=== PATIENT | male | born 1980 | race Caucasian/White ===

== ENCOUNTER 2016-12-20 09:37 | Emergency (ER) | payer OTHER ==
[2016-12-20 09:50] VITALS: BP 129/86
[2016-12-20] MEDS ORDERED: Ondansetron 4 MG/2 ML SDV IVPUSH ONE (10:09)
--- NOTE | 2016-12-20 10:13 | EDM.PDOC ---
ED HPI GENERAL MEDICAL PROBLEM - General Chief Complaint: Headache Stated Complaint: HEADACHE AND VOMITING Time Seen by Provider: 12/20/16 09:51 Source of Information: Reports: Patient, RN Notes Reviewed - History of Present Illness INITIAL COMMENTS - FREE TEXT/NARRATIVE: 36-year-old male comes in with headache, nausea vomiting. He has been having headache for about the last 2 weeks intermittent intensity but never really going completely away. The last few nights that has been awakening him from sleep. He had onset of fairly severe repetitive vomiting last evening lasting through much of the night. He and his do have a young child that was ill with similar nausea vomiting symptoms about 3 days ago. He has not been having diarrhea. Nausea, vomiting is better now this morning. Continues to have moderate generalized headache. Major throbbing with that, mild light sensitivity. He has no history of migraines or frequent headaches, this has all been fairly atypical for him. He feels at times he may be "a bit off balance". No definite focal weakness or clumsiness. No visual difficulty. Headache Pain Score (Numeric/FACES): 7 - Related Data Allergies Allergy/AdvReac Type Severity Reaction Status Date / Time No Known Allergies Allergy Verified 12/20/16 10:25 Home Meds: Home Meds traMADol [Ultram] 50 mg PO Q8H PRN #20 tablet 12/20/16 [Rx] Past Medical History Cardiovascular History: Reports: Hypertension Neurological History: Reports: Concussion - Past Surgical History GI Surgical History: Reports: Appendectomy Other GI Surgeries/Procedures: appendectomy 2009 Social & Family History - Tobacco Use Smoking Status *Q: Never Smoker Second Hand Smoke Exposure: No - Caffeine Use Caffeine Use: Reports: Coffee - Recreational Drug Use Recreational Drug Use: No ED ROS GENERAL - Review of Systems Review Of Systems: See Below Constitutional: Denies: Fever HEENT: Denies: Sinus Problem, Throat Pain, Vertigo, Vision Change Respiratory: Denies: Shortness of Breath Cardiovascular: Denies: Chest Pain GI/Abdominal: Reports: Abdominal Pain, Nausea, Vomiting. Denies: Diarrhea ( mild cramps, gone) Musculoskeletal: Denies: Joint Pain Skin: Reports: No Symptoms Neurological: Reports: Dizziness, Headache (mild). Denies: Numbness (moderate) , Tingling, Trouble Speaking, Difficulty Walking - Physical Exam Exam: See Below General Appearance: Alert, Mild Distress Eye Exam: Bilateral Eye: PERRL Throat/Mouth: Normal Inspection, Normal Oropharynx Head Exam: Atraumatic. No: Facial Swelling Neck: Supple, Full Range of Motion Respiratory/Chest: No Respiratory Distress, Lungs Clear, Normal Breath Sounds Cardiovascular: Regular Rate, Rhythm GI/Abdominal: Non-Tender. No: Guarding, Rebound Neuro Exam (Abbreviated): Alert, Oriented, No Motor/Sensory Deficits, Other ( finger to nose testing normal) Extremities: Normal Inspection, Normal Range of Motion Psychiatric: Normal Affect, Normal Mood Skin Exam: Warm, Dry, Intact, No Rash Course - Vital Signs Last Recorded V/S: Last Vital Signs Temp 98.2 F 12/20/16 09:42 Pulse 97 12/20/16 09:42 Resp 16 12/20/16 09:42 BP 129/86 12/20/16 09:42 Pulse Ox 93 L 12/20/16 09:42 - Orders/Labs/Meds Orders: Active Orders 24 hr Category Date Time Status Peripheral IV Care [RC] . DIRECTED Care 12/20/16 10:09 Active Brain w wo Cont [MR] Stat Exams 12/20/16 10:12 Taken Sodium Chloride 0.9% [Normal Saline] 1,000 ml Med 12/20/16 10:15 Active IV ONETIME Sodium Chloride 0.9% [Saline Flush] Med 12/20/16 10:09 Active 10 ml FLUSH ASDIRECTED PRN Peripheral IV Insertion Adult [OM.PC] Stat Oth 12/20/16 10:09 Ordered Medication Orders Sodium Chloride (Normal Saline) 1,000 mls @ 999 mls/hr IV ONETIME OVIDIO Last Admin: 12/20/16 10:20 Dose: 999 mls/hr Sodium Chloride (Saline Flush) 10 ml FLUSH ASDIRECTED PRN PRN Reason: Keep Vein Open Last Admin: 12/20/16 10:55 Dose: 10 ml Admin: 12/20/16 10:23 Dose: 10 ml Labs: Laboratory Tests 12/20/16 12/20/16 Range/Units 09:45 09:45 WBC 13.51 H (4.23-9.07) K/mm3 RBC 4.95 (4.63-6.08) M/mm3 Hgb 14.5 (13.7-17.5) gm/L Hct 41.2 (40.1-51.0) % MCV 83.2 (79.0-92.2) fl MCH 29.3 (25.7-32.2) pg MCHC 35.2 (32.2-35.5) g/dl RDW Std Deviation 35.2 (35.1-43.9) fL Plt Count 365 H (163-337) K/mm3 MPV 10.0 (9.4-12.3) fl Neut % (Auto) 77.1 H (34.0-67.9) % Lymph % (Auto) 18.9 L (21.8-53.1) % Bowie % (Auto) 3.3 L (5.3-12.2) % Eos % (Auto) 0.1 L (0.8-7.0) Baso % (Auto) 0.2 (0.1-1.2) % Neut # (Auto) 10.40 H (1.78-5.38) K/mm3 Lymph # (Auto) 2.56 (1.32-3.57) K/mm3 Bowie # (Auto) 0.45 (0.30-0.82) K/mm3 Eos # (Auto) 0.01 L (0.04-0.54) K/mm3 Baso # (Auto) 0.03 (0.01-0.08) K/mm3 Sodium 139 (136-145) mEq/L Potassium 3.7 (3.5-5.1) mEq/L Chloride 102 (98-107) mEq/L Carbon Dioxide 26 (21-32) mEq/L Anion Gap 14.7 (5-15) BUN 18 (7-18) mg/dL Creatinine 1.3 (0.7-1.3) mg/dL Est Cr Clr Drug Dosing 81.11 mL/min Estimated GFR (MDRD) > 60 (>60) mL/min BUN/Creatinine Ratio 13.8 L (14-18) Glucose 171 H (74-106) mg/dL Calcium 9.5 (8.5-10.1) mg/dL Total Bilirubin 1.2 H (0.2-1.0) mg/dL AST 20 (15-37) U/L ALT 31 (16-63) U/L Alkaline Phosphatase 72 (46-116) U/L Total Protein 7.7 (6.4-8.2) g/dl Albumin 4.0 (3.4-5.0) g/dl Globulin 3.7 gm/dL Albumin/Globulin Ratio 1.1 (1-2) Meds: Medications Generic Name Dose Route Start Last Admin Trade Name Freq PRN Reason Stop Dose Admin Sodium Chloride 1,000 mls @ 999 mls/hr 12/20/16 10:15 12/20/16 10:20 Normal Saline IV 999 mls/hr ONETIME OVIDIO Administration Sodium Chloride 10 ml 12/20/16 10:09 12/20/16 10:55 Saline Flush FLUSH 10 ml ASDIRECTED PRN Administration Keep Vein Open Discontinued Medications Generic Name Dose Route Start Last Admin Trade Name Freq PRN Reason Stop Dose Admin Gadobenate Dimeglumine 20 ml 12/20/16 10:25 12/20/16 10:55 Multihance IVPUSH 12/20/16 10:26 20 ml ONETIME ONE Administration Ondansetron HCl 4 mg 12/20/16 10:09 12/20/16 10:20 Zofran IVPUSH 12/20/16 10:10 4 mg ONETIME ONE Administration - Re-Assessments/Exams Free Text/Narrative Re-Assessment/Exam: 12/20/16 12:02. labs are fine, borderline very mild dehydration 14.7. The MRI looks good. I do not see acute abnormality, radiology report has just come back showing mention of minimal area of increased signal within subcortical white matter within left frontal convexity. No other abnormal signals seen within the brain parenchyma, finding felt to be incidental. See radiology report for details.. Departure - Departure Time of Disposition: 11:36 Disposition: Home, Self-Care 01 Clinical Impression: Tension-type headache Vomiting Qualifiers: Vomiting type: unspecified Vomiting Intractability: non-intractable Nausea presence: with nausea Qualified Code(s): R11.2 - Nausea with vomiting, unspecified - Discharge Information Prescriptions: traMADol [Ultram] 50 mg PO Q8H PRN #20 tablet PRN Reason: Headache Instructions: Tension Headache, [id number], Nausea and Vomiting, Adult, Easy- to-Read Referrals: Jennie Brush PA-C [Primary Care Provider] - Forms: ED Department Discharge Additional Instructions: rest, clear liquids for the next 4-5 hours, then very careful bland diet as tolerated, continue to alternate Tylenol and Advil or ibuprofen for headache, you may take tramadol up to 2 or 3 times daily in addition if needed for headache not relieved by the above medications. Try melatonin at night to help you rest. Follow-up clinic if symptoms not resolving as expected, return to ED if symptoms worsening in any way. - My Orders Last 24 Hours: My Active Orders 12/20/16 10:09 Peripheral IV Care [RC] . DIRECTED Sodium Chloride 0.9% [Saline Flush] 10 ml FLUSH ASDIRECTED PRN Peripheral IV Insertion Adult [OM.PC] Stat 12/20/16 10:12 Brain w wo Cont [MR] Stat 12/20/16 10:15 Sodium Chloride 0.9% [Normal Saline] 1,000 ml IV ONETIME - Assessment/Plan Last 24 Hours: My Active Orders 12/20/16 10:09 Peripheral IV Care [RC] . DIRECTED Sodium Chloride 0.9% [Saline Flush] 10 ml FLUSH ASDIRECTED PRN Peripheral IV Insertion Adult [OM.PC] Stat 12/20/16 10:12 Brain w wo Cont [MR] Stat 12/20/16 10:15 Sodium Chloride 0.9% [Normal Saline] 1,000 ml IV ONETIME
[2016-12-20] MEDS ORDERED: Sodium Chloride 0.9% 1,000 ML IV SCH (10:15)
[2016-12-20] MEDS: Sodium Chloride 0.9% 10 ML Syringe FLUSH PRN ×2 (10:23→10:55)
[2016-12-20] MEDS ORDERED: Gadobenate Dimeglumine 529 MG/ML 20 ML SDV IVPUSH ONE (10:25)
--- NOTE | 2016-12-20 11:55 | MR ---
MRI brain (with and without contrast) Technique: T1 sagittal; T2, T2 FLAIR, T1 and diffusion axial; T1 FLAIR coronal; post gadolinium T1 axial and post gadolinium T1 FLAIR coronal images were obtained to the brain. Comparison: Previous MRI brain dated 05/07/15. Findings: Ventricles along with basal cisterns and sulci over the convexities appear within normal limits for the patient's age. Normal signal void is seen within the major cerebral arteries within the skull base. Minimal area of increased signal is seen within the subcortical white matter within the left frontal convexity. No other abnormal signal is seen within the brain parenchyma and this finding is felt to be incidental. No acute diffusion abnormalities are seen. No abnormal areas of enhancement are seen. Impression: 1. Minimal area of increased signal as described above which is felt to be incidental as no other abnormal signals is seen within the brain parenchyma. 2. MRI study of the brain is unremarkable. Diagnostic code #1
== END 2016-12-20 11:56 | disposition home or self-care (01) ==
LOC: JD.ED 09:37
DX: G44.209 Tension-type headache, unspecified, not intractable (principal); E86.0 Dehydration; I10 Essential (primary) hypertension; Z90.49 Acquired absence of other specified parts of digestive tract
CPT/HCPCS: 36415; 70553; 80053; 85025; 96361; 96374; 99284; A9577; J2405; J7040; J7050